=== PATIENT | female | born 1935 | race Caucasian/White ===

== ENCOUNTER 2016-10-14 07:12 | Day surgery (SDC) | payer OTHER ==
[~2016-10-14] VITALS: Ht 154.9 cm; Wt 74.5 kg
[~2016-10-14 07:12] MED LIST: BENICAR5 MG PO; LOVASTATIN40 MG PO; MELOXICAM15 MG PO; ROPINIROLE HCL1 MG PO; TIZANIDINE HCL2 MG PO
[2016-10-14 09:08] VITALS: BP 130/64
[2016-10-14 14:18] VITALS: BP 145/65
== END 2016-10-14 18:31 | disposition home or self-care (01) ==
LOC: SDC 07:12 → 2SOUTH 12:17 → 2EASTP 14:00 → SDC 16:08 → 2EASTP 18:31
PROC: 01NB0ZZ Release Lumbar Nerve, Open Approach (ICD-10-PCS; principal; 2016-10-14)
DX: M48.06 Spinal stenosis, lumbar region (principal); M47.816 Spondylosis without myelopathy or radiculopathy, lumbar region; M43.16 Spondylolisthesis, lumbar region; I73.9 Peripheral vascular disease, unspecified; G60.9 Hereditary and idiopathic neuropathy, unspecified; R26.0 Ataxic gait; I10 Essential (primary) hypertension; J45.909 Unspecified asthma, uncomplicated; M19.90 Unspecified osteoarthritis, unspecified site; G47.33 Obstructive sleep apnea (adult) (pediatric); M81.0 Age-related osteoporosis without current pathological fracture; Z86.718 Personal history of other venous thrombosis and embolism; Z96.653 Presence of artificial knee joint, bilateral; Z88.0 Allergy status to penicillin; Z88.5 Allergy status to narcotic agent
CPT/HCPCS: 72020; 76000; G0378; J0330; J1170; J1885; J2250; J2405; J2710; J2930; J3010; J3370; J3480; S0020

== ENCOUNTER 2017-09-02 14:33 | Observation (INO) | payer OTHER ==
[~2017-09-02] VITALS: Ht 157.5 cm; Wt 7501.0 kg
[2017-09-02] MEDS ORDERED: GABAPENTIN100 MG PO (15:12)
[2017-09-02] MEDS ORDERED: CHILD ASPIRIN81 M1 PO (15:16)
[2017-09-02 15:55] LABS: BASOPHIL (%) 0.5 % (0-1); EOSINOPHIL (%) 0.8 % (0-5); EOSINOPHIL COUNT 0.1 K/uL (0-0.3); HEMATOCRIT 36.3 % (36.0-46.0); HEMOGLOBIN 11.8 G/DL (11.9-15.5); IMMATURE GRANULOCYTE (%) 0.3 % (0.0-0.7); LYMPHOCYTE (%) 17.8 % (15-42); LYMPHOCYTE COUNT 1.1 K/uL (1.0-2.8); MCH 29.6 PG (29.0-34.0); MCHC 32.5 G/DL (30.0-36.0); MCV 91.2 FL (83-99); MONOCYTE (%) 12.5 % (3-12); MONOCYTE COUNT 0.8 K/uL (0-0.8); NEUTROPHIL (%) 68.1 % (45-76); NEUTROPHIL COUNT 4.3 K/uL (1.8-6.4); PLATELET COUNT 183 K/uL (156-360); RBC DIS.WIDTH-CV 12.1 % (11.8-14.6); RBC DIS.WIDTH-SD 40.6 % (39-53); RED BLOOD COUNT 3.98 M/uL (3.80-5.20); WHITE BLOOD COUNT 6.3 K/uL (4.1-10.2)
[2017-09-02 16:11] LABS: CHLORIDE 104 mEq/L (99-109); POTASSIUM 3.7 mEq/L (3.7-5.4); SODIUM 140 mEq/L (136-147)
[2017-09-02 16:13] LABS: GLUCOSE 95 mg/dL (70-99)
[2017-09-02 16:17] LABS: CREATININE 0.9 mg/dL (0.6-1.3); GFR ESTIMATE (CALCULATED) > 59 mL/min/
[2017-09-02 16:18] LABS: UREA NITROGEN (BUN) 19 mg/dL (9-23)
[2017-09-02 16:23] LABS: PTT 29.5 SEC (25-37); TROP-I INTERPRETATION NEGATIVE; TROPONIN-I 0.01 ng/mL (0.0-0.30)
[2017-09-02] MEDS ORDERED: TYLENOL EXTRA500 MG PO (16:57)
[2017-09-02 17:47] LABS: HDL CHOLESTEROL 81 MG/DL (Desirable>=50); LDL CHOLESTEROL 52 mg/dL (Desirable<100); NON-HDL CHOLESTEROL 66 mg/dL (Desirable<160); TOTAL CHOLESTEROL 147 mg/dL (Desirable<200); TRIGLYCERIDES 68 MG/DL (Normal: <150)
[2017-09-02 19:05] VITALS: BP 171/70
[2017-09-03 00:02] VITALS: BP 135/63
[2017-09-03 01:11] LABS: TROP-I INTERPRETATION NEGATIVE; TROPONIN-I 0.01 ng/mL (0.0-0.30)
[2017-09-03 03:48] VITALS: BP 113/56
[2017-09-03 05:15] LABS: HEMATOCRIT 34.9 % (36.0-46.0); HEMOGLOBIN 11.1 G/DL (11.9-15.5); MCH 29.1 PG (29.0-34.0); MCHC 31.8 G/DL (30.0-36.0); MCV 91.6 FL (83-99); PLATELET COUNT 164 K/uL (156-360); RBC DIS.WIDTH-CV 12.2 % (11.8-14.6); RBC DIS.WIDTH-SD 40.8 % (39-53); RED BLOOD COUNT 3.81 M/uL (3.80-5.20)
[2017-09-03 05:42] LABS: TROP-I INTERPRETATION NEGATIVE; TROPONIN-I < 0.01 ng/mL (0.0-0.30)
[2017-09-03 05:43] LABS: ALBUMIN 3.7 G/DL (3.2-4.8); ALKALINE PHOSPHATASE 62 IU/L (3-129); ALT (GPT) 10 IU/L (3-49); AST (GOT) 14 IU/L (2-34); CHLORIDE 107 MEQ/L (99-109); CREATININE 0.8 MG/DL (0.6-1.3); GFR ESTIMATE (CALCULATED) > 59 mL/min/; GLUCOSE 107 mg/dL (70-99); POTASSIUM 3.4 MEQ/L (3.7-5.4); SODIUM 140 MEQ/L (136-147); TOTAL BILIRUBIN 1.7 MG/DL (0.0-1.0); TOTAL PROTEIN 5.9 G/DL (6.4-8.3); UREA NITROGEN (BUN) 16 mg/dL (9-23)
[2017-09-03 08:17] VITALS: BP 168/75
[2017-09-03] MEDS ORDERED: Salonpas 4% Patch TD (10:10)
[2017-09-03 11:20] VITALS: BP 134/58
[2017-09-05 08:38] LABS: HEMOGLOBIN A1c (GLYCOHEMOGLOB) 5.5 % (Below 5.7)
== END 2017-09-03 11:58 | disposition home or self-care (01) ==
LOC: EME 14:33 → EDOF 17:00 → 4SOUTH 17:00 → EDOF 17:00 → ENRESERV 17:03 → 4SOUTH 19:02
PROVIDERS: Emergency Medicine; Internal Medicine
DX: R07.89 Other chest pain (principal); M48.062 Spinal stenosis, lumbar region with neurogenic claudication; E78.5 Hyperlipidemia, unspecified; G25.81 Restless legs syndrome; J45.909 Unspecified asthma, uncomplicated; I10 Essential (primary) hypertension; Z90.49 Acquired absence of other specified parts of digestive tract; Z79.82 Long term (current) use of aspirin; Z88.0 Allergy status to penicillin; Z88.8 Allergy status to other drugs, medicaments and biological substances
CPT/HCPCS: 71045; 80048; 80053; 80061; 83036; 84484; 85025; 85027; 85610; 85730; 93005; 99281; 99285; G0378; J1650; S0028